=== PATIENT | female | born 1960 | race Two or more races ===

== ENCOUNTER 2018-05-31 08:48 | Emergency (ER) | payer OTHER ==
[~2018-05-31] VITALS: Ht 157.5 cm; Wt 72.7 kg
--- NOTE | 2018-05-31 09:25 | NUR ---
PT IN ROOM NAD, ASSESSED BY CELY LEAL, NO NEEDS AT THIS TIME, WCTM
[2018-05-31 09:38] LABS: BASOPHILS # (AUTO) 0.03 x10^3/uL (0-0.1); BASOPHILS % (AUTO) 0 % (0-1); EOSINOPHILS # (AUTO) 0.23 x10^3/uL (0-0.4); EOSINOPHILS % (AUTO) 4 % (1-7); LYMPHOCYTES % (AUTO) 28 % (22-44); MD NO; MEAN CORPUSCULAR HEMOGLOBIN 30.6 pg (27.0-34.8); MEAN CORPUSCULAR HGB CONC 33.5 g/dL (32.4-35.8); MEAN CORPUSCULAR VOLUME 91.6 fL (80-100); MEAN PLATELET VOLUME 8.6 fL (7.4-10.4); MONOCYTES # (AUTO) 0.38 x10^3/uL (0.2-0.8); MONOCYTES % (AUTO) 6 % (2-9); NEUTROPHILS # (AUTO) 3.66 x10^3/uL (1.8-6.8); NEUTROPHILS % (AUTO) 61 % (42-75); PLATELET COUNT 329 x10^3/uL (130-400); RED BLOOD COUNT 4.15 x10^6/uL (3.82-5.3); RED CELL DISTRIBUTION WIDTH 13.4 % (9.6-15.2)
[2018-05-31 09:48] LABS: CALCIUM 9.1 mg/dL (8.5-10.1); CREATININE 0.73 mg/dL (0.55-1.02)
[2018-05-31 10:10] LABS: ANION GAP 8 mmol/L (5-15); CHLORIDE 106 mmol/L (98-107)
[2018-05-31 10:48] VITALS: BP 135/87
== END 2018-05-31 10:51 | disposition home or self-care (01) ==
LOC: ED 10:49
DX: N95.0 Postmenopausal bleeding (principal)
CPT/HCPCS: 36415; 76830; 80048; 82040; 85025; 99284

== ENCOUNTER 2018-06-22 18:43 | Emergency (ER) | payer OTHER ==
[~2018-06-22] VITALS: Ht 157.5 cm; Wt 78.2 kg
[2018-06-22 19:32] LABS: BASOPHILS # (AUTO) 0.03 x10^3/uL (0-0.1); BASOPHILS % (AUTO) 0 % (0-1); EOSINOPHILS # (AUTO) 0.35 x10^3/uL (0-0.4); EOSINOPHILS % (AUTO) 5 % (1-7); LYMPHOCYTES # (AUTO) 2.23 x10^3/uL (1-3.4); LYMPHOCYTES % (AUTO) 31 % (22-44); MD NO; MEAN CORPUSCULAR HEMOGLOBIN 31.4 pg (27.0-34.8); MEAN CORPUSCULAR VOLUME 92.3 fL (80-100); MEAN PLATELET VOLUME 8.9 fL (7.4-10.4); MONOCYTES # (AUTO) 0.48 x10^3/uL (0.2-0.8); MONOCYTES % (AUTO) 7 % (2-9); NEUTROPHILS # (AUTO) 4.08 x10^3/uL (1.8-6.8); NEUTROPHILS % (AUTO) 57 % (42-75); PLATELET COUNT 349 x10^3/uL (130-400); RED BLOOD COUNT 4.14 x10^6/uL (3.82-5.3); RED CELL DISTRIBUTION WIDTH 13.4 % (9.6-15.2)
[2018-06-22 19:34] LABS: PROTHROMBIN TIME 10.6 Seconds (9.6-11.5)
[2018-06-22 19:37] LABS: ALANINE AMINOTRANSFERASE 53 U/L (12-78); ALBUMIN 4.1 g/dL (3.4-5.0); ANION GAP 10 mmol/L (5-15); CALCIUM 9.4 mg/dL (8.5-10.1); CHLORIDE 104 mmol/L (98-107); CREATININE 0.64 mg/dL (0.55-1.02)
[2018-06-22 19:40] LABS: ALKALINE PHOSPHATASE 128 U/L (45-117); BILIRUBIN,TOTAL 0.5 mg/dL (0.2-1.0); TOTAL PROTEIN 8.2 g/dL (6.4-8.2)
--- NOTE | 2018-06-22 19:40 | NUR ---
PT DIAGNOSED WITH STAGE 3 ENDOMETRIAL CANCER 3 DAYS AGO, PT C/O WORSENING BILATERAL LOWER ABD/PELVIC PAIN RADIATING TO BILATERAL UPPER ABD AND LOWER BACK PRESENT SINCE 05/31/18. PT ALSO NOTES SCANT SEROSANG VAG DISCHARGE SINCE 05/31/18. PT RATES PAIN AT 11/27, PT DECLINING PAIN MEDICATION AT THIS TIME. PT PROVIDED WITH WARM BLANKETS, DENIES ANY OTHER NEEDS AT THIS TIME. CALL LIGHT IN REACH. PT AWAITING LAB RESULTS AND CT AT THIS TIME.
[2018-06-22 20:31] VITALS: BP 108/62
--- NOTE | 2018-06-22 20:31 | NUR ---
PT REPORTS PAIN IMPROVED AT THIS TIME. PT IS A&O, RESPS EVEN AND UNLABORED. CT'S COMPLETE, AWAITING CT CHEST RESULTS AND DISPO. CALL LIGHT IN REACH.
--- NOTE | 2018-06-22 20:49 | NUR ---
BRIDGET MCGUIRE AT BEDSIDE TO EXPLAIN RESULTS AND POC.
--- NOTE | 2018-06-22 21:00 | NUR ---
PT GIVEN DC INSTRUCTIONS BY BRIDGET MCGUIRE. PT AMBULATED TO DC DESK WITH STEADY GAIT, NADN AT DC.
[2018-06-22] MEDS ORDERED: OMNIPAQUE 350 MG/ML, 100ML BOTTLE ONE (23:48)
== END 2018-06-22 21:19 | disposition home or self-care (01) ==
LOC: ED 19:40
DX: R10.84 Generalized abdominal pain (principal)
CPT/HCPCS: 36415; 71260; 74177; 80053; 83690; 85025; 85610; 99284; Q9967

== ENCOUNTER 2018-11-08 18:20 | Observation (INO) | payer OTHER ==
[~2018-11-08] VITALS: Ht 157.5 cm; Wt 65.8 kg
[2018-11-08] MEDS ORDERED: SODIUM CHLORIDE 0.9% 1,000 ML IV ONE (18:22)
[2018-11-08] MEDS ORDERED: SODIUM CHLORIDE FLUSH 10ML SYR IVF ONE (18:30)
[2018-11-08] MEDS ORDERED: FENTANYL PF 100 MCG/2ML IVPush PRN (18:30)
[2018-11-08] MEDS ORDERED: PLEASE ENTER HEIGHT AND WEIGHT MC SCH (18:30)
--- NOTE | 2018-11-08 18:39 | NUR ---
PT BIB [facility] FOR LEFT SIDED CP, RIB PAIN FOR FOUR HOURS WITH SOB. PT IS ON HOSPICE BUT NOT ABLE TO GET A HOLD OF HOSPICE NURSE. PT WAS GIVEN 100 MCG FENTANYL COLLECTION MANAGER BY [facility] WITH RELIEF. PER [facility] PT WAS TACHYPNIC AT A RATE OF 40 THEN DECREASED TO 20 ON ARRIVAL TO ER WITH FENTANYL. PT ON MONITOR AND FAMILY AT BEDSIDE.
--- NOTE | 2018-11-08 19:10 | NUR ---
PT MOVED TO ROOM 16 FROM 27 DUE TO SMELL FROM FLOOR WAXING BEING DONE. REPORT TO MIRTHA JACQUES. 3 P'S ADDRESSED. PT REFUSED PAIN MEDS.
[2018-11-08 19:11] LABS: ALANINE AMINOTRANSFERASE 32 U/L (12-78); ALBUMIN 2.8 g/dL (3.4-5.0); ANION GAP 8 mmol/L (5-15); CALCIUM 10.2 mg/dL (8.5-10.1); CHLORIDE 98 mmol/L (98-107); CREATININE 0.37 mg/dL (0.55-1.02)
[2018-11-08 19:16] LABS: ALKALINE PHOSPHATASE 499 U/L (45-117); BILIRUBIN,TOTAL 0.3 mg/dL (0.2-1.0); TOTAL PROTEIN 7.4 g/dL (6.4-8.2); TROPONIN I < 0.015 ng/mL (0.000-0.045)
[2018-11-08] MEDS ORDERED: LORA-446 PO (19:21)
[2018-11-08] MEDS ORDERED: HYDR1LIQ6 PO (19:21)
[2018-11-08] MEDS ORDERED: ACET-1600 PO (19:21)
[2018-11-08] MEDS ORDERED: HYDROmorphone 2 MG/ML, 1ML ONE ×2 (19:21→23:07)
[2018-11-08] MEDS ORDERED: ONDANSETRON 2MG/ML, 2ML ONE ×3 (19:21→22:49)
[2018-11-08] MEDS ORDERED: ONDA4TAB7 PO (19:21)
--- NOTE | 2018-11-08 19:23 | NUR ---
ASSUMED CARE FOR THIS PT. PT MEDICATED ORDERED AND READY FOR CT SCAN
--- NOTE | 2018-11-08 19:26 | NUR ---
Assist RN: patient assisted to use bedside commode.
[2018-11-08 19:28] LABS: BASOPHILS # (AUTO) 0.01 x10^3/uL (0-0.1); BASOPHILS % (AUTO) 0 % (0-1); EOSINOPHILS # (AUTO) 0.17 x10^3/uL (0-0.4); EOSINOPHILS % (AUTO) 2 % (1-7); LYMPHOCYTES # (AUTO) 1.19 x10^3/uL (1-3.4); LYMPHOCYTES % (AUTO) 13 % (22-44); MEAN CORPUSCULAR HEMOGLOBIN 29.3 pg (27.0-34.8); MEAN CORPUSCULAR HGB CONC 33.1 g/dL (32.4-35.8); MEAN CORPUSCULAR VOLUME 88.5 fL (80-100); MEAN PLATELET VOLUME 8.1 fL (7.4-10.4); MONOCYTES # (AUTO) 0.48 x10^3/uL (0.2-0.8); MONOCYTES % (AUTO) 6 % (2-9); NEUTROPHILS # (AUTO) 6.98 x10^3/uL (1.8-6.8); NEUTROPHILS % (AUTO) 79 % (42-75); PLATELET COUNT 446 x10^3/uL (130-400); RED BLOOD COUNT 4.04 x10^6/uL (3.82-5.3); RED CELL DISTRIBUTION WIDTH 16.3 % (9.6-15.2)
[2018-11-08 19:29] LABS: MD NO
[2018-11-08] MEDS ORDERED: HYDROmorphone 2 MG/ML, 1ML IV ONE (19:30)
[2018-11-08] MEDS ORDERED: ONDANSETRON 2MG/ML, 2ML IVPush ONE (19:30)
--- NOTE | 2018-11-08 20:30 | NUR ---
PT MEDICATED ORDERED AND AWAITING CTA.
[2018-11-08] MEDS ORDERED: OMNIPAQUE 350 MG/ML, 100ML BOTTLE ONE (20:36)
[2018-11-08] MEDS: SODIUM CHLORIDE 0.9% 1,000 ML IV SCH ×2 (21:13→22:55)
--- NOTE | 2018-11-08 21:14 | NUR ---
PT BACK FROM CT AND POSITIONED FOR COMFORT. PT WITH OXY MASK ON AT 10 L
[2018-11-08] MEDS ORDERED: ONDANSETRON 2MG/ML, 2ML IVPush PRN (21:30)
[2018-11-08] MEDS: ENOXAPARIN 40 MG/0.4 ML SQ SCH (21:30)
[2018-11-08 22:11] LABS: MICROSCOPIC AUTO
[2018-11-08 22:14] LABS: CULTURE INDICATED? YES
--- NOTE | 2018-11-08 22:45 | NUR ---
REPORT CALLED TO FLOOR AWAITNG CLEAN ROOM FOR TRANSPORT.
[2018-11-08] MEDS ORDERED: ENOXAPARIN 40 MG/0.4 ML ONE (22:49)
[2018-11-08] MEDS ORDERED: LORazepam 1MG TABLET ONE (22:50)
--- NOTE | 2018-11-08 23:14 | NUR ---
ONC CALLED ROOM NOW CLEAN.
[2018-11-09 00:08] VITALS: BP 122/76
[2018-11-09] MEDS: HYDROmorphone 2MG TABLET PO PRN ×4 (04:51→21:08)
[2018-11-09 05:27] LABS: BASOPHILS # (AUTO) 0.02 x10^3/uL (0-0.1); BASOPHILS % (AUTO) 0 % (0-1); EOSINOPHILS # (AUTO) 0.04 x10^3/uL (0-0.4); EOSINOPHILS % (AUTO) 1 % (1-7); LYMPHOCYTES # (AUTO) 1.42 x10^3/uL (1-3.4); LYMPHOCYTES % (AUTO) 15 % (22-44); MD NO; MEAN CORPUSCULAR HGB CONC 32.4 g/dL (32.4-35.8); MEAN CORPUSCULAR VOLUME 89.6 fL (80-100); MONOCYTES # (AUTO) 0.51 x10^3/uL (0.2-0.8); MONOCYTES % (AUTO) 5 % (2-9); NEUTROPHILS # (AUTO) 7.62 x10^3/uL (1.8-6.8); NEUTROPHILS % (AUTO) 79 % (42-75); PLATELET COUNT 433 x10^3/uL (130-400); RED BLOOD COUNT 3.76 x10^6/uL (3.82-5.3); RED CELL DISTRIBUTION WIDTH 16.2 % (9.6-15.2)
[2018-11-09 05:35] LABS: CHLORIDE 101 mmol/L (98-107)
[2018-11-09 05:42] LABS: ALANINE AMINOTRANSFERASE 27 U/L (12-78); ALBUMIN 2.6 g/dL (3.4-5.0); ALKALINE PHOSPHATASE 418 U/L (45-117); ANION GAP 8 mmol/L (5-15); BILIRUBIN,TOTAL 0.7 mg/dL (0.2-1.0); CALCIUM 10.4 mg/dL (8.5-10.1); CREATININE 0.37 mg/dL (0.55-1.02); TOTAL PROTEIN 6.9 g/dL (6.4-8.2)
[2018-11-09] MEDS: LORazepam 1MG TABLET PO SCH ×4 (06:34→21:08)
[2018-11-09 08:09] VITALS: BP 115/76
[2018-11-09] MEDS: HYDROmorphone 2MG TABLET PO SCH (18:44)
[2018-11-09] MEDS: SODIUM CHLORIDE 0.9% 1,000 ML IV SCH (19:50)
[2018-11-09 20:47] VITALS: BP 135/80
[2018-11-09] MEDS: ENOXAPARIN 40 MG/0.4 ML SQ SCH (21:09)
[2018-11-10 00:24] VITALS: BP 118/71
[2018-11-10] MEDS: HYDROmorphone 2MG TABLET PO SCH ×4 (00:25→18:36)
[2018-11-10] MEDS: HYDROmorphone 2MG TABLET PO PRN ×3 (03:48→21:36)
[2018-11-10 05:30] LABS: BASOPHILS # (AUTO) 0.01 x10^3/uL (0-0.1); BASOPHILS % (AUTO) 0 % (0-1); EOSINOPHILS # (AUTO) 0.09 x10^3/uL (0-0.4); EOSINOPHILS % (AUTO) 1 % (1-7); LYMPHOCYTES # (AUTO) 0.96 x10^3/uL (1-3.4); LYMPHOCYTES % (AUTO) 11 % (22-44); MD NO; MEAN CORPUSCULAR HEMOGLOBIN 29.1 pg (27.0-34.8); MEAN CORPUSCULAR HGB CONC 32.6 g/dL (32.4-35.8); MEAN CORPUSCULAR VOLUME 89.3 fL (80-100); MEAN PLATELET VOLUME 8.1 fL (7.4-10.4); MONOCYTES # (AUTO) 0.46 x10^3/uL (0.2-0.8); MONOCYTES % (AUTO) 5 % (2-9); NEUTROPHILS # (AUTO) 6.99 x10^3/uL (1.8-6.8); NEUTROPHILS % (AUTO) 82 % (42-75); PLATELET COUNT 438 x10^3/uL (130-400); RED BLOOD COUNT 3.46 x10^6/uL (3.82-5.3); RED CELL DISTRIBUTION WIDTH 16.3 % (9.6-15.2)
[2018-11-10 05:45] LABS: CHLORIDE 100 mmol/L (98-107)
[2018-11-10 05:48] LABS: ANION GAP 9 mmol/L (5-15); CALCIUM 9.9 mg/dL (8.5-10.1)
[2018-11-10 05:50] LABS: CREATININE < 0.15 mg/dL (0.55-1.02)
[2018-11-10] MEDS: LORazepam 1MG TABLET PO SCH ×4 (05:56→21:36)
[2018-11-10] MEDS ORDERED: ALBUTEROL/IPRATROPIUM 2.5MG/0.5MG, 3 ML ONE (06:51)
[2018-11-10] MEDS: ALBUTEROL/IPRATROPIUM 2.5MG/0.5MG, 3 ML NPPB PRN ×3 (07:00→21:58)
[2018-11-10 07:53] VITALS: BP 111/64
[2018-11-10] MEDS: SODIUM CHLORIDE 0.9% 1,000 ML IV SCH (10:34)
[2018-11-10 13:53] VITALS: BP 121/75
[2018-11-10] MEDS ORDERED: POTASSIUM CHLORIDE 20 MEQ in SODIUM CHLORIDE 0.9% 250 ML IV ONE (16:00)
[2018-11-10 16:07] LABS: HEMOGLOBIN A1C 5.5 % (4.2-6.3)
[2018-11-10 19:56] VITALS: BP 129/76
[2018-11-10] MEDS: ENOXAPARIN 40 MG/0.4 ML SQ SCH (21:30)
[2018-11-11] MEDS: HYDROmorphone 2MG TABLET PO SCH ×3 (00:55→12:28)
[2018-11-11 01:42] VITALS: BP 110/75
[2018-11-11] MEDS: SODIUM CHLORIDE 0.9% 1,000 ML IV SCH (02:33)
[2018-11-11] MEDS: ALBUTEROL/IPRATROPIUM 2.5MG/0.5MG, 3 ML NPPB PRN ×2 (03:31→07:53)
[2018-11-11 04:53] LABS: BASOPHILS # (AUTO) 0.02 x10^3/uL (0-0.1); BASOPHILS % (AUTO) 0 % (0-1); EOSINOPHILS # (AUTO) 0.08 x10^3/uL (0-0.4); EOSINOPHILS % (AUTO) 1 % (1-7); LYMPHOCYTES # (AUTO) 1.07 x10^3/uL (1-3.4); LYMPHOCYTES % (AUTO) 12 % (22-44); MD NO; MEAN CORPUSCULAR HEMOGLOBIN 28.7 pg (27.0-34.8); MEAN CORPUSCULAR HGB CONC 32.7 g/dL (32.4-35.8); MEAN CORPUSCULAR VOLUME 87.6 fL (80-100); MEAN PLATELET VOLUME 7.6 fL (7.4-10.4); MONOCYTES # (AUTO) 0.49 x10^3/uL (0.2-0.8); MONOCYTES % (AUTO) 5 % (2-9); NEUTROPHILS % (AUTO) 82 % (42-75); PLATELET COUNT 468 x10^3/uL (130-400); RED BLOOD COUNT 3.53 x10^6/uL (3.82-5.3); RED CELL DISTRIBUTION WIDTH 16.1 % (9.6-15.2)
[2018-11-11 04:57] LABS: ANION GAP 9 mmol/L (5-15); CALCIUM 9.3 mg/dL (8.5-10.1); CHLORIDE 95 mmol/L (98-107); CREATININE 0.21 mg/dL (0.55-1.02)
[2018-11-11] MEDS: LORazepam 1MG TABLET PO SCH ×2 (06:33→11:52)
[2018-11-11 07:26] VITALS: BP 125/73
== END 2018-11-11 12:48 ==
LOC: ED 18:28 → EDIP 21:13 → 3NW 22:45
PROVIDERS: ADMIT Family Medicine; ATTEND Family Medicine
DX: R07.89 Other chest pain (principal); J96.01 Acute respiratory failure with hypoxia; E87.2 Acidosis; E87.1 Hypo-osmolality and hyponatremia; C55 Malignant neoplasm of uterus, part unspecified; C78.00 Secondary malignant neoplasm of unspecified lung; R00.0 Tachycardia, unspecified; D63.8 Anemia in other chronic diseases classified elsewhere; D47.3 Essential (hemorrhagic) thrombocythemia; G89.3 Neoplasm related pain (acute) (chronic); E87.6 Hypokalemia; E86.0 Dehydration; E16.2 Hypoglycemia, unspecified; Z66 Do not resuscitate; Z79.899 Other long term (current) drug therapy
CPT/HCPCS: 36415; 71045; 71275; 80048; 80053; 81001; 82962; 83036; 83605; 83690; 83880; 84484; 85025; 87086; 93005; 94640; 96372; 96374; 96375; 99284; G0378; J1170; J2405; J3480; J7030; J7050; J7620; Q9967; J1650